=== PATIENT | female | born 1975 | race Caucasian/White ===

== ENCOUNTER → 2016-10-21 | Outpatient (CLI) | payer OTHER ==
[~2016-10-21] MED LIST: THERAGRAN TAB1 EA PO
== END ==
LOC: LAB 07:44
DX: Z02.1 Encounter for pre-employment examination (principal)
CPT/HCPCS: 86706

== ENCOUNTER → 2020-09-01 | Outpatient (CLI) | payer BC ==
[~2020-09-01] MED LIST changes: +NAPROSYN500 MG PO
[2020-09-01 16:51] LABS: HEMOGLOBIN 12.7 gm/dl (12.3-15.3); RED BLOOD COUNT 4.38 M/UL (4.00-5.10); WHITE BLOOD COUNT 6.9 K/UL (4.5-11.0)
[2020-09-01 17:25] LABS: BUN/CREATININE RATIO 15 (0-10)
== END ==
LOC: LAB 16:20
PROVIDERS: Family Medicine
DX: E03.9 Hypothyroidism, unspecified (principal); E53.8 Deficiency of other specified B group vitamins; E55.9 Vitamin D deficiency, unspecified; E61.1 Iron deficiency; R73.03 Prediabetes
CPT/HCPCS: 36415; 80053; 82607; 82728; 83036; 83540; 83550; 84439; 84443; 85025

== ENCOUNTER 2020-11-23 13:00 | Emergency (ER) | payer BC ==
[~2020-11-23 13:00] MED LIST changes: -NAPROSYN500 MG PO
[2020-11-23] MEDS ORDERED: NAPROSYN500 MG PO (16:08)
== END 2020-11-23 16:13 | disposition home or self-care (01) ==
LOC: ER1 13:00
DX: S52.501A Unspecified fracture of the lower end of right radius, initial encounter for closed fracture (principal); S52.611A Displaced fracture of right ulna styloid process, initial encounter for closed fracture; Z90.710 Acquired absence of both cervix and uterus; Z85.3 Personal history of malignant neoplasm of breast; W19.XXXA Unspecified fall, initial encounter
CPT/HCPCS: 29125; 73110; 99283

== ENCOUNTER → 2020-12-12 | Outpatient (CLI) | payer BC ==
[~2020-12-12] MED LIST changes: +NAPROSYN500 MG PO
[2020-12-12 11:16] LABS: BUN/CREATININE RATIO 21 (0-10)
== END ==
LOC: LAB 10:13
PROVIDERS: Internal Medicine Hematology & Oncology
DX: C50.919 Malignant neoplasm of unspecified site of unspecified female breast (principal)
CPT/HCPCS: 36415; 80053

== ENCOUNTER → 2020-12-13 | Outpatient (CLI) | payer BC ==
[2020-12-13 10:49] LABS: HEMOGLOBIN 12.3 gm/dl (12.3-15.3); RED BLOOD COUNT 4.34 M/UL (4.00-5.10); WHITE BLOOD COUNT 5.3 K/UL (4.5-11.0)
== END ==
LOC: LAB 10:29
PROVIDERS: Internal Medicine Hematology & Oncology
DX: C50.919 Malignant neoplasm of unspecified site of unspecified female breast (principal)
CPT/HCPCS: 36415; 85025

== ENCOUNTER → 2022-01-09 | Outpatient (CLI) | payer BC ==
[2022-01-09 10:21] LABS: RED BLOOD COUNT 4.4 M/UL (4.00-5.10); WHITE BLOOD COUNT 7.2 K/UL (4.5-11.0)
[2022-01-09 10:42] LABS: BUN/CREATININE RATIO 16 (0-10)
== END ==
LOC: LAB 09:51
PROVIDERS: Internal Medicine Hematology & Oncology
DX: C50.919 Malignant neoplasm of unspecified site of unspecified female breast (principal)
CPT/HCPCS: 36415; 80053; 85025